=== PATIENT | female | born 1960 | race Two or more races ===

== ENCOUNTER 2022-03-16 06:05 | Day surgery (SDC) | payer MEDICAID ==
[2022-03-09 14:05] LABS: BASOPHILS % (AUTO) 0.3 % (0-1); EOSINOPHILS # (AUTO) 0.1 X10'3 (0-0.9); EOSINOPHILS % (AUTO) 1.6 % (0-6); LYMPHOCYTES # (AUTO) 2.6 X10'3 (1.1-4.8); LYMPHOCYTES % (AUTO) 29.8 % (21-51); MEAN CORPUSCULAR HEMOGLOBIN 31.6 PG (27.0-31.0); MEAN CORPUSCULAR HGB CONC 34.9 g/dL (33.0-36.5); MEAN CORPUSCULAR VOLUME 90.6 FL (78-98); MEAN PLATELET VOLUME 7.7 FL (7.4-10.4); MONOCYTES # (AUTO) 0.6 X10'3 (0-0.9); MONOCYTES % (AUTO) 7.2 % (2-12); NEUTROPHILS # (AUTO) 5.4 X10'3 (1.8-7.7); NEUTROPHILS % (AUTO) 61.1 % (42-75); PRE OP HEMATOCRIT 39.9 % (35.0-45.0); PRE OP HEMOGLOBIN 13.9 g/dL (12.0-16.0); PRE OP PLATELET COUNT 277 X10'3 (140-440); RED CELL DISTRIBUTION WIDTH 13.6 % (11.5-14.5)
[2022-03-09 14:22] LABS: ALBUMIN 3.2 G/DL (3.4-5.0); ALBUMIN/GLOBULIN RATIO 0.7 (1.1-1.5); ALKALINE PHOSPHATASE 221 IU/L (46-116); BLOOD UREA NITROGEN 12 MG/DL (7-18); BUN/CREATININE RATIO 15.4 (6.6-38.0); CALCIUM 9.3 MG/DL (8.5-10.1); CHLORIDE 100 MMOL/L (99-107); CREATININE 0.78 MG/DL (0.40-0.90); PRE OP ALT 38 U/L (30-65); PRE OP ANION GAP 8 (8-16); PRE OP AST 16 U/L (10-37); PRE OP BILIRUB, TOTAL 0.4 MG/DL (0.0-1.0); PRE OP POTASSIUM 3.9 MMOL/L (3.4-5.1); PRE OP SODIUM 137 MMOL/L (135-145); TOTAL CARBON DIOXIDE 29.1 MMOL/L (24-32); TOTAL PROTEIN 7.5 G/DL (6.4-8.2); eGFR 75 ML/MIN
[2022-03-09 14:28] LABS: PRE OP GLUCOSE 298 MG/DL (70-104)
[2022-03-16] VITALS (9 sets, daily range): BP systolic 99–137; BP diastolic 62–69
[~2022-03-16] VITALS: Ht 149.9 cm; Wt 123.2 kg
[~2022-03-16 06:05] MED LIST: ACET-1025 PO; DULA0.75 SQ; FERR325T32 PO; GLIM4TAB7 PO; INSU100I31 SQ; LEVO75TA PO; LORA10TA7 PO; METF-900 PO; METR70GE5 TOP; VOLTAREN GEL TOP; ceFAZolin inj. 3,000 MG in normal saline 100ml IV soln 100 ML IV ONE; famotidine 20mg tablet PO ONE; ringers solution, lacted 1,000 ML IV SCH
[2022-03-16] MEDS ORDERED: BUPIVAcaine/PF 2.5mg/ml (0.25%) 10ml vial ONE (06:59)
[2022-03-16] MEDS ORDERED: LIDOcaine 0.5% (5mg/ml) 50ml vial ONE (07:32)
[2022-03-16] MEDS ORDERED: insulin regular, human 10 units/0.1 ml syringe IV ONE (07:35)
[2022-03-16] MEDS ORDERED: midazolam 1 mg/ML 2ml injection ONE ×2 (09:16→09:39)
[2022-03-16] MEDS ORDERED: fentaNYL/PF 50MCG/1 ML 2ML syringe ONE (09:16)
[2022-03-16] MEDS ORDERED: hydrALAZINE 20mg/ml inj. IV ONE (09:51)
--- NOTE | 2022-03-16 09:53 | NUR ---
RECEIVED PT FROM OPERATING ROOM IN STABLE CONDITION, REPORT RECEIVED FROM ANESTHESIA. VITAL SIGNS STABLE, DRESSING ON LEFT HAND DRY AND INTACT
[2022-03-16] MEDS ORDERED: insulin regular, human U-100 3ml vial - multi-dose IV ONE (10:15)
--- NOTE | 2022-03-16 11:03 | NUR ---
PT ASSISTED GETTING DRESSED. SHE WAS ABLE TO STAND WITHOUT ASSISTANCE, PATIENT VERBALIZED UNDERSTANDING OF HER DISCHARGE INSTRUCTIONS SPOKE TO PTS DAUGHTER AMADOU WHO IS ON HER WAY TO [employer] PT. IV D/JEANNINE WITH CATHETER INTACT. PT STATES SHE HAS HER PAIN MEDICATIONS ALREADY AND HOME AND WAS INSTRUCTED TO USE HER CPAP WHILE SLEEPING DURING THE DAYTIME.
== END 2022-03-16 11:03 | disposition home or self-care (01) ==
LOC: PAS 06:05
PROVIDERS: ATTEND Orthopaedic Surgery Hand Surgery
DX: G56.02 Carpal tunnel syndrome, left upper limb (principal); E03.9 Hypothyroidism, unspecified; E66.01 Morbid (severe) obesity due to excess calories; E11.40 Type 2 diabetes mellitus with diabetic neuropathy, unspecified; M17.12 Unilateral primary osteoarthritis, left knee; J44.9 Chronic obstructive pulmonary disease, unspecified; G47.30 Sleep apnea, unspecified; M19.90 Unspecified osteoarthritis, unspecified site; Z79.899 Other long term (current) drug therapy; Z98.890 Other specified postprocedural states; Z88.8 Allergy status to other drugs, medicaments and biological substances; Z83.3 Family history of diabetes mellitus; Z82.49 Family history of ischemic heart disease and other diseases of the circulatory system
CPT/HCPCS: 29848; 36415; 80053; 82948; 85025; 87811; 93005; J0360; J0690; J1815; J2250; J3010; J3490; J7030; J7120; Z7506; Z7512; A4215; A7000